=== PATIENT | male | born 1990 | race Caucasian/White ===

== ENCOUNTER 2018-04-05 14:00 | Emergency (ER) | payer MEDICAID ==
[~2018-04-05] VITALS: Ht 188 cm; Wt 105.8 kg
[~2018-04-05 14:00] MED LIST: ARIP15TA3 PO; BACL-19 PO; BENZ2AMP4 PO; CLON1TAB PO; Cogentin PO; LORA1TAB PO; LORA2TAB PO; OLAN20TA3 PO; OXCA150T3 PO; OXCA300T3 PO; QUET25TA5 PO; TRAZ100T15 PO; TRAZ150T62 PO; ZIPR60CA2 PO; ZIPR80CA2 PO
[2018-04-05 14:18] VITALS: BP 116/68
[2018-04-05] MEDS ORDERED: METHOCARBAMOL 750 MG TABLET ONE (15:14)
[2018-04-05] MEDS ORDERED: IBUPROFEN 200 MG TABLET ONE (15:14)
[2018-04-05] MEDS ORDERED: METHOCARBAMOL 750 MG TABLET PO ONE (15:30)
[2018-04-05] MEDS ORDERED: IBUPROFEN 200 MG TABLET PO ONE (15:30)
== END 2018-04-05 15:23 | disposition home or self-care (01) ==
LOC: ED 15:17
DX: S39.012A Strain of muscle, fascia and tendon of lower back, initial encounter (principal); F41.9 Anxiety disorder, unspecified; I10 Essential (primary) hypertension; F20.0 Paranoid schizophrenia; F31.9 Bipolar disorder, unspecified; X50.0XXA Overexertion from strenuous movement or load, initial encounter; Y93.89 Activity, other specified; Y92.89 Other specified places as the place of occurrence of the external cause; Y99.8 Other external cause status
CPT/HCPCS: 72110; 99284

== ENCOUNTER 2019-06-19 15:30 | Emergency (ER) | payer MEDICAID, OTHER ==
[~2019-06-19] VITALS: Ht 188 cm; Wt 94.4 kg
[2019-06-19 15:37] VITALS: BP 113/72
== END 2019-06-19 16:06 | disposition home or self-care (01) ==
LOC: ED 16:00
DX: H10.023 Other mucopurulent conjunctivitis, bilateral (principal); F17.210 Nicotine dependence, cigarettes, uncomplicated; I10 Essential (primary) hypertension
CPT/HCPCS: 99283

== ENCOUNTER 2019-10-11 19:57 | Emergency (ER) | payer MEDICAID, OTHER ==
[~2019-10-11] VITALS: Ht 188 cm; Wt 98.0 kg
[~2019-10-11 19:57] MED LIST changes: +TRAZ-137 PO; -TRAZ100T15 PO
[2019-10-11 20:04] VITALS: BP 127/89
[2019-10-11] MEDS ORDERED: CARBAMIDE PEROXIDE EAR DROPS 6.5%, 15ML ONE (20:26)
[2019-10-11] MEDS ORDERED: CARBAMIDE PEROXIDE EAR DROPS 6.5%, 15ML RIGHT EAR ONE (20:30)
== END 2019-10-11 21:31 | disposition home or self-care (01) ==
LOC: ED 21:25
DX: H61.21 Impacted cerumen, right ear (principal)
CPT/HCPCS: 69209; 99281; 99282

== ENCOUNTER 2021-03-06 21:10 | Emergency (ER) | payer MEDICAID ==
[~2021-03-06] VITALS: Ht 188 cm; Wt 93.8 kg
[~2021-03-06 21:10] MED LIST changes: -TRAZ-137 PO; +TRAZ-175 PO
--- NOTE | 2021-03-06 21:34 | NUR ---
THIS IS A 30M THAT COMES IN FOR SI/ HI STS HE FEELS LIKE HE NEEDS TO HURT PEOPLE TO GET HIS POINT ACROSS. PT ALSO STS HE IS HEARING THINGS ABOUT PEOPLE AND HE IS CONSTANTLY BEING MESSED WITH SINCE HE WAS DC FROM HOSPITAL FOR SIMILAR EVENT. STS HX OF SCHIZOPHRENIA AND HAS BEEN TAKING HIS MEDS. PT ALSO STS UNABLE TO WORK BECAUSE OF HEARING ALL OF THE VOICES AND NOW FEELS LIKE HE WANTS TO WALK INTO TRAFFIC. PT CALM AND COOPERATIVE WITH STAFF. URINE SAMPLE PROVIDED, BELONGINGS LABELED 2 BELONGINGS BAGS PLACED IN BIN FOR ROOM 1 AND PT HAD ONE LARGE BACKPACK ALSO PLACED ON TOP SHELF. PT RESTING ON [employer].
[2021-03-06 21:45] LABS: BASOPHILS % (AUTO) 1 % (0-1); EOSINOPHILS % (AUTO) 3 % (1-7); LYMPHOCYTES % (AUTO) 24 % (22-44); MEAN CORPUSCULAR HEMOGLOBIN 33.3 pg (27.5-34.5); MEAN CORPUSCULAR HGB CONC 35.3 g/dL (33.2-36.2); MONOCYTES % (AUTO) 10 % (2-9); NEUTROPHILS % (AUTO) 63 % (42-75); PLATELET COUNT 263 x10^3/uL (130-400); RED BLOOD COUNT 4.35 x10^6/uL (4.38-5.82); RED CELL DISTRIBUTION WIDTH 12.6 % (9.4-14.8)
[2021-03-06 21:47] LABS: MD NO
[2021-03-06 21:57] LABS: ALANINE AMINOTRANSFERASE 45 U/L (12-78); ALBUMIN 3.9 g/dL (3.4-5.0); ANION GAP 8 mmol/L (5-15); CALCIUM 8.9 mg/dL (8.5-10.1); CHLORIDE 108 mmol/L (98-107); CREATININE 0.91 mg/dL (0.7-1.3); SALICYLATE LEVEL 2.3 mg/dL (2.8-20.0)
[2021-03-06 21:58] LABS: ALKALINE PHOSPHATASE 82 U/L (45-117); BILIRUBIN,TOTAL 0.4 mg/dL (0.2-1.0); TOTAL PROTEIN 7.2 g/dL (6.4-8.2)
--- NOTE | 2021-03-06 22:21 | NUR ---
PT RESTING ON GURNEY FREE FROM HARM AT THIS TIME.
--- NOTE | 2021-03-06 22:23 | NUR ---
PT MEDICATED PER MAR, 5 RIGHTS VERIFIED, TOLERATED WELL ALSO PROVIDED WITH SNACKS AT THIS TIME. PT REMAINS CALM COOPERATIVE.
[2021-03-06] MEDS ORDERED: TRAZODONE 50MG TABLET ONE (22:30)
[2021-03-06] MEDS ORDERED: TRAZODONE 50MG TABLET PO ONE (22:30)
[2021-03-06 22:39] LABS: MICROSCOPIC NOT IND
[2021-03-06 22:49] LABS: AMPHETAMINE SCREEN, URINE Positive (Negative); BARBITURATE SCREEN, URINE Negative (Negative); BENZODIAZEPINE SCREEN, URINE Negative (Negative); CANNABINOID SCREEN, URINE Positive (Negative); COCAINE SCREEN, URINE Negative (Negative); METHADONE SCREEN, URINE Negative (Negative); OPIATE SCREEN, URINE Negative (Negative)
--- NOTE | 2021-03-06 23:03 | NUR ---
PT IN IMAGING AT THIS TIME
[2021-03-07] MEDS ORDERED: LORazepam 1MG TABLET PO ONE (00:30)
[2021-03-07] MEDS ORDERED: LORazepam 1MG TABLET ONE (00:31)
--- NOTE | 2021-03-07 00:36 | NUR ---
PT AWAKE AND REQ ADDITIONAL MEDS/ SNACKS ERP UPDATED, PT GIVEN ATIVAN PO PER DR HONEYCUTT. PT CALM AND THANKFUL AT THIS TIME NO OTHER NEEDS EXPRESSED
--- NOTE | 2021-03-07 00:42 | NUR ---
REPORT TO LYLY AT THIS TIME ALL QUESTIONS ADDRESSED
--- NOTE | 2021-03-07 00:47 | NUR ---
REICIEVED REPORT FROM LUBA HAILE.
--- NOTE | 2021-03-07 01:26 | NUR ---
Assist RN: patient sleeping [facility]. Respirations even and unlabored. Room secured, belongings locked in cabinet.
--- NOTE | 2021-03-07 01:58 | NUR ---
PT IN BED RESTING WITH BILATERAL CHEST RISE AND FALL. ROOM IS SECURE AND BELONGINGS LOCKED AND SITTER OUTSIDE ROOM.
--- NOTE | 2021-03-07 03:24 | NUR ---
PT RESTING IN BED WITH BILATERAL CHEST RISE AND FALL. BED RAILS UP AND SITTER IS OUTSIDE THE ROOM.
[2021-03-07 03:58] VITALS: BP 127/69
--- NOTE | 2021-03-07 04:31 | NUR ---
PT RESTING IN BED WITH BILATERAL RISE AND FALL OF CHEST. BED RAILS UP AND SITTER OUTSIDE OF ROOM.
--- NOTE | 2021-03-07 05:26 | NUR ---
PT RESTING IN BED ON HIS SIDE, WITH BILATERAL RISE AND FALL OF CHEST. BED RAILS UP AND SITTER OUTSIDE OF ROOM.
--- NOTE | 2021-03-07 06:25 | NUR ---
PT RESTING IN BED ON HIS SIDE, WITH BILATERAL RISE AND FALL OF CHEST. BED RAILS UP AND SITTER OUTSIDE OF ROOM. PT STATES HE IS HUNGRY.
--- NOTE | 2021-03-07 06:56 | NUR ---
Report given to MIC Alves. Patient care transferred.
--- NOTE | 2021-03-07 08:42 | NUR ---
FIRST CONTACT W/ PT D/T PT CARE. PT AMBULATED W/ A STEADY GAIT W/ [facility] EMT. RESP EVEN AND UNLABORED, SOHAM.
--- NOTE | 2021-03-07 09:10 | NUR ---
Adolph hoffman in ED - 03/07/21 at 0911 by [email or web address] PT PROVIDED W/ MACK CHANEY. PER PT CLEARED BY PSYCH. CYNDEE SW CONSULT.
--- NOTE | 2021-03-07 09:11 | NUR ---
PT PROVIDED W/ DIET TRAY. PER PT CLEARED BY PSYCH. AWAITING SW CONSULT.
--- NOTE | 2021-03-07 11:09 | NUR ---
YUN AT BEDSIDE. PER ERICA MALCOLM PT CLEARED FOR DC.
--- NOTE | 2021-03-07 12:03 | NUR ---
BELONGINGS RETURNED BY CHARITY SANTIAGO. PT LEFT PRIOR TO RECEIVING DC PPWK AND BUS PASS.
== END 2021-03-07 12:05 | disposition home or self-care (01) ==
LOC: ED 03-07 11:54
DX: G89.11 Acute pain due to trauma (principal); M25.561 Pain in right knee; F10.120 Alcohol abuse with intoxication, uncomplicated; F12.10 Cannabis abuse, uncomplicated; F15.10 Other stimulant abuse, uncomplicated; F20.0 Paranoid schizophrenia; X58.XXXA Exposure to other specified factors, initial encounter; Y93.89 Activity, other specified; Y92.89 Other specified places as the place of occurrence of the external cause; Y99.8 Other external cause status
CPT/HCPCS: 29505; 36415; 80053; 80299; 80307; 80320; 80329; 81003; 85025; 99284; G0480

== ENCOUNTER 2021-06-07 11:07 | Emergency (ER) | payer MEDICAID ==
[~2021-06-07] VITALS: Ht 188 cm; Wt 87.6 kg
[2021-06-07 11:09] VITALS: BP 125/63
--- NOTE | 2021-06-07 11:48 | NUR ---
THIS IS A 30 YEAR OLD MALE WITH ANXIETY/SI/AUD HALLUCINATION (VOICES SAYING TO "RUN AND JUMP OFF A BRIDGE"), STOPPED TAKING PSYCH MEDS A COUPLE MOS AGO "BECAUSE I COULDN'T DO PUSH UPS", DENIES DRUG/ETOH USE, "I'M A TRAVELLER, MOVING STATE TO STATE". PT BA 0.22. BELONGINGS IN SAVE KEEPING/SHEET COMPLETED. ROOM SECURED, SITTER AT DOOR. EXPLAINED PLAN OF CARE. PT VERBALIZED UNDERSTANDING
[2021-06-07 11:49] LABS: BASOPHILS % (AUTO) 1 % (0-1); EOSINOPHILS % (AUTO) 0 % (1-7); LYMPHOCYTES % (AUTO) 7 % (22-44); MEAN CORPUSCULAR HEMOGLOBIN 33.1 pg (27.5-34.5); MEAN CORPUSCULAR HGB CONC 34.9 g/dL (33.2-36.2); MEAN PLATELET VOLUME 7.7 fL (7.4-10.4); MONOCYTES % (AUTO) 3 % (2-9); NEUTROPHILS % (AUTO) 89 % (42-75); PLATELET COUNT 247 x10^3/uL (130-400); RED BLOOD COUNT 4.39 x10^6/uL (4.38-5.82); RED CELL DISTRIBUTION WIDTH 12.6 % (9.4-14.8)
[2021-06-07 11:55] LABS: ALANINE AMINOTRANSFERASE 92 U/L (12-78); ALBUMIN 4.2 g/dL (3.4-5.0); ANION GAP 13 mmol/L (5-15); CALCIUM 8.7 mg/dL (8.5-10.1); CHLORIDE 108 mmol/L (98-107); CREATININE 0.91 mg/dL (0.7-1.3); SALICYLATE LEVEL 2.9 mg/dL (2.8-20.0)
[2021-06-07 11:58] LABS: ALKALINE PHOSPHATASE 68 U/L (45-117); BILIRUBIN,TOTAL 0.3 mg/dL (0.2-1.0); TOTAL PROTEIN 7.3 g/dL (6.4-8.2)
--- NOTE | 2021-06-07 12:44 | NUR ---
PT SLEEPING RESP EVEN AND UNLABORED
--- NOTE | 2021-06-07 13:30 | NUR ---
PT SLEEPING CALMLY, NAD WITH EQUAL CHEST RISE/FALL, NO NEEDS AT THIS TIME, PT REMAINS IN SAFE ENVIRONMENT, SITTER IN VIEW.
--- NOTE | 2021-06-07 14:41 | NUR ---
PT AMBULATING STEADILY TO PHONE- "CALLING MOM. I NEED TO LEAVE, NOBOBY KNOWS I'M HERE." PT DENIES SI/HI AT THIS TIME- DR GILMORE AWARE.
--- NOTE | 2021-06-07 14:44 | NUR ---
Patient given discharge instructions and they have confirmed that they understand the instructions. Patient ambulatory with steady gait. NAD, all questions answered appropriately, denies additional needs at this time. No personal belongings left in room after discharge.
== END 2021-06-07 14:54 | disposition home or self-care (01) ==
LOC: ED 11:28
DX: F33.9 Major depressive disorder, recurrent, unspecified (principal); F10.229 Alcohol dependence with intoxication, unspecified; I10 Essential (primary) hypertension; Y90.0 Blood alcohol level of less than 20 mg/100 ml
CPT/HCPCS: 36415; 80053; 80299; 80320; 80329; 85025; 99283; G0480

== ENCOUNTER 2021-07-09 00:02 | Emergency (ER) | payer MEDICAID ==
[~2021-07-09] VITALS: Ht 188 cm; Wt 80.8 kg
[2021-07-09] MEDS ORDERED: LORazepam 1MG TABLET PO ONE (01:00)
[2021-07-09] MEDS ORDERED: LORazepam 1MG TABLET ONE (01:09)
[2021-07-09 01:18] LABS: BASOPHILS % (AUTO) 1 % (0-1); EOSINOPHILS % (AUTO) 1 % (1-7); LYMPHOCYTES % (AUTO) 23 % (22-44); MEAN CORPUSCULAR HEMOGLOBIN 32.6 pg (27.5-34.5); MEAN CORPUSCULAR HGB CONC 34.5 g/dL (33.2-36.2); MEAN PLATELET VOLUME 7.3 fL (7.4-10.4); MONOCYTES % (AUTO) 7 % (2-9); NEUTROPHILS % (AUTO) 68 % (42-75); PLATELET COUNT 285 x10^3/uL (130-400); RED BLOOD COUNT 4.72 x10^6/uL (4.38-5.82); RED CELL DISTRIBUTION WIDTH 12.6 % (9.4-14.8)
[2021-07-09 01:31] LABS: ALANINE AMINOTRANSFERASE 46 U/L (12-78); ANION GAP 9 mmol/L (5-15); CALCIUM 9.2 mg/dL (8.5-10.1); CHLORIDE 106 mmol/L (98-107); CREATININE 0.73 mg/dL (0.7-1.3); SALICYLATE LEVEL 6.1 mg/dL (2.8-20.0)
[2021-07-09 01:33] LABS: ALKALINE PHOSPHATASE 68 U/L (45-117); BILIRUBIN,TOTAL 0.5 mg/dL (0.2-1.0); TOTAL PROTEIN 7.3 g/dL (6.4-8.2)
--- NOTE | 2021-07-09 02:01 | NUR ---
AMBULATORY WITH STEADY GAIT TO BATHROOM FOR URINE SAMPLE. PT DENIES ANY ADDITIONAL NEEDS. CALL LIGHT AND BELONGINGS WITHIN REACH
[2021-07-09 02:27] LABS: AMPHETAMINE SCREEN, URINE Positive (Negative); BARBITURATE SCREEN, URINE Negative (Negative); BENZODIAZEPINE SCREEN, URINE Negative (Negative); CANNABINOID SCREEN, URINE Positive (Negative); COCAINE SCREEN, URINE Negative (Negative); METHADONE SCREEN, URINE Negative (Negative); OPIATE SCREEN, URINE Negative (Negative)
--- NOTE | 2021-07-09 02:53 | NUR ---
BREAK RN: RE-EVALUATION DONE. PATIENT MEDICALLY CLEARED TO GO TO [facility]. [facility] NOTIFIED. NEEDED PAPERS FAXED REQUESTED BY RN.
--- NOTE | 2021-07-09 02:54 | NUR ---
PATIENT DISCHARGED WITH INSTRUCTIONS. CAB VOUCHER PROVIDED.
[2021-07-09 02:55] VITALS: BP 134/78
== END 2021-07-09 02:57 | disposition home or self-care (01) ==
LOC: ED 02:14
DX: F10.239 Alcohol dependence with withdrawal, unspecified (principal); R45.4 Irritability and anger; F41.1 Generalized anxiety disorder; I10 Essential (primary) hypertension; F17.200 Nicotine dependence, unspecified, uncomplicated; Y90.0 Blood alcohol level of less than 20 mg/100 ml
CPT/HCPCS: 36415; 80053; 80299; 80307; 80320; 80329; 85025; 99283; G0480

== ENCOUNTER 2021-07-27 20:01 | Emergency (ER) | payer MEDICAID ==
[~2021-07-27] VITALS: Ht 188 cm; Wt 81.7 kg
[2021-07-27 20:14] VITALS: BP 109/58
--- NOTE | 2021-07-27 23:11 | NUR ---
[facility] bal attempted to dc pt from triage, pt left without dc paperwork
== END 2021-07-27 23:13 | disposition home or self-care (01) ==
LOC: ED 20:11
DX: F22 Delusional disorders (principal)
CPT/HCPCS: 99281; 99284